=== PATIENT | female | born 1965 | race Caucasian/White ===

== ENCOUNTER 2016-11-04 15:42 | Emergency (ER) | payer OTHER ==
[~2016-11-04] VITALS: Ht 167.6 cm; Wt 88.5 kg
--- NOTE | ~2016-11-04 | EKG ---
[address] [address] ELECTROCARDIOGRAM REPORT Name: CATHY RICHTER Room #: DEP Lorelei#: [id number] Admission: 11/04/16 Attend Phys: Discharge: 11/04/16 Date of : 61 Report #: [id number] THIS REPORT FOR: //name// [facility] ED Test Date: 2016-11-04 Test Time: 16:16:24 Pat Name: CATHY RICHTER Department: Room: Gender: F [employer]: FABY : 1965 Requested By: Krystian Gibson Order Number: [id number] MD: Kevyn Gonsales Measurements Intervals [place] Rate: 88 P: 34 GA: 177 QRS: -5 QRSD: 90 T: 44 QT: 385 QTc: 466 Interpretive Statements Sinus rhythm Normal tracing Compared to ECG 05/04/2014 12:40:44 No significant changes Electronically Signed On 11-05-2016 8:46:08 CDT by Kevyn Gonsales [email or web address] <ELECTRONICALLY SIGNED> By: Kevyn Gonsales MD, [facility] 11/05/16 [id number] 15 Kevyn Gonsales MD, FACC /EPI
[~2016-11-04 15:42] MED LIST: ALDACTONE25 MG PO; CONSTULOSE10 GM/152; ELAVIL PO; HYDROXYZINE HCL25 M1 PO; LASIX 40 MG TAB40 M1 PO; LASIX 80 MG TAB80 MG PO; LEVOTHYROXIN0.075 MG PO; LEVOTHYROXINE0.05 MG PO; MAGNESIUM400 MG PO; POTASSIUM20 PO; TOPAMAX50 MG PO; TRAZODONE HCL100 MG PO; VESICARE 5 MG TA5 MG PO; XANAX XR1 MG PO; XANAX XR2 MG PO; XANAX1 MG PO; ZOLOFT100 MG PO
[2016-11-04] MEDS ORDERED: PERCOCET 5-3251 EACH PO (18:50)
== END 2016-11-04 19:24 | disposition home or self-care (01) ==
LOC: ER 15:42
DX: M25.511 Pain in right shoulder (principal); F32.9 Major depressive disorder, single episode, unspecified; F41.9 Anxiety disorder, unspecified; E03.9 Hypothyroidism, unspecified; F17.210 Nicotine dependence, cigarettes, uncomplicated; Z86.19 Personal history of other infectious and parasitic diseases; Z90.49 Acquired absence of other specified parts of digestive tract; Z90.89 Acquired absence of other organs; Z88.8 Allergy status to other drugs, medicaments and biological substances; Z88.6 Allergy status to analgesic agent; Z91.018 Allergy to other foods

== ENCOUNTER 2016-11-08 17:04 | Emergency (ER) | payer OTHER ==
[~2016-11-08] VITALS: Ht 172.7 cm; Wt 88.5 kg
[~2016-11-08 17:04] MED LIST changes: +PERCOCET 5-3251 EACH PO
[2016-11-08] MEDS ORDERED: NORFLEX100 MG PO (18:51)
[2016-11-08] MEDS ORDERED: MOBIC7.5 MG PO (18:51)
== END 2016-11-08 18:55 | disposition home or self-care (01) ==
LOC: ER 17:04
DX: G89.29 Other chronic pain (principal); M25.511 Pain in right shoulder; F41.9 Anxiety disorder, unspecified; F32.9 Major depressive disorder, single episode, unspecified; Z98.890 Other specified postprocedural states; F17.210 Nicotine dependence, cigarettes, uncomplicated; F10.99 Alcohol use, unspecified with unspecified alcohol-induced disorder; Z88.1 Allergy status to other antibiotic agents; Z88.6 Allergy status to analgesic agent; Z91.018 Allergy to other foods; Z88.8 Allergy status to other drugs, medicaments and biological substances